=== PATIENT | male | born 1955 | race Caucasian/White ===

== ENCOUNTER 2021-01-06 06:48 | Day surgery (SDC) | payer MEDICARE, BC ==
[~2021-01-06] VITALS: Ht 195.6 cm; Wt 108.6 kg
[2021-01-06 07:20] LABS: HEMATOCRIT 44.7 % (42.0-54.0); HEMOGLOBIN 15.7 g/dL (13.5-17.5); MCH 32.1 pg (26.0-34.0); MCHC 35.1 g/dL (31.0-37.0); MCV 91.4 fL (80.0-100.0); RBC 4.89 10x6/uL (4.20-6.10); RDW 13.4 % (11.5-14.5); WBC 8.4 10x3/uL (4.8-10.8)
[2021-01-06] MEDS ORDERED: TOPROL XL50 MG PO (07:27)
[2021-01-06 07:37] VITALS: BP 117/82; Ht 195.6 cm; Wt 108.6 kg
== END 2021-01-06 09:15 | disposition home or self-care (01) ==
LOC: D.OPS 06:48
PROVIDERS: Anesthesiology; ATTEND Surgery
DX: K57.32 Diverticulitis of large intestine without perforation or abscess without bleeding (principal); K64.8 Other hemorrhoids; I73.9 Peripheral vascular disease, unspecified; J44.9 Chronic obstructive pulmonary disease, unspecified